=== PATIENT | male | born 1980 | race Asian ===

== ENCOUNTER 2016-09-25 11:19 | Outpatient (CLI) | payer OTHER | END 2016-09-25 11:20 | disposition EMS.NT | LOC: EMS 11:19 | PROVIDERS: ATTEND Surgery | DX: Z04.1 Encounter for examination and observation following transport accident (principal); V43.53XA Car driver injured in collision with pick-up truck in traffic accident, initial encounter; Y92.480 Sidewalk as the place of occurrence of the external cause ==